=== PATIENT | male | born 1975 | race Caucasian/White ===

== ENCOUNTER → 2022-08-16 | Outpatient (REF) | payer OTHER ==
[2022-08-16 18:16] LABS: CREATININE, URINE 125.6 MG/DL; MAU/CREAT RATIO 25.4 MCG/MG (0.0-30.0)
== END ==
LOC: M LAB REF 16:47
PROVIDERS: ATTEND Nurse Practitioner Family
DX: E11.65 Type 2 diabetes mellitus with hyperglycemia (principal)